=== PATIENT | male | born 1965 | race Caucasian/White ===

== ENCOUNTER → 2016-12-08 | Outpatient (CLI) | payer MEDICARE, MEDICAID ==
[~2016-12-08] MED LIST: APRESOLINE 50MG50 MG PO; ARANESP IJ; ASPIRIN 81MG TA81 MG PO; CELEXA20 MG PO; CENTRUM1 TAB PO; CEPHALEXIN500 MG PO; DOCUSATE SOD100 MG PO; FENTANYL 550 MCG/EAC TD; FERROUS SULFAT325 M2 PO; FLORINEF 0.1MG0.1 MG PO; FOLIC ACID1 MG PO; GAS-X80 MG PO; HYDROCODON APAP PO; HYDROCODONE-APA1 TA2 PO; ISOSORBIDE DINI10 MG PO; ISOSORBIDE MONO30 MG PO; KEFLEX 500MG.500 MG PO; LIDODERM 5% PA1 EACH TD; LISINOPRIL10 MG PO; LORTAB 5/500 501 TAB PO; MAG-OX 400MG T400 MG PO; METHOTREXATE 22.5 MG PO; METOCLOPRAMIDE10 M2 PO; METOPROLOL25 MG PO; MIRALAX17 GM/PACK PO; NEURONTIN100 MG PO; NOMEDS; Oxycodone5 MG PO; PERCOCET 5/3251 EACH PO; PLAVIX75 MG PO; POTASSIUM CHLO10 ME3 PO; POTASSIUM CHLO20 ME2 PO; PROTONIX 40MG T40 MG PO; RENAGEL800 MG PO; THIAMINE 100MG100 MG PO; TYLENOL 8 HOUR650 MG PO; TYLENOL325 MG PO; VENLAFAXINE37.5 MG PO; VITAMIN B12500 MCG PO; [UNRECOGNIZED DRUG - OTHER] IJ; [UNRECOGNIZED DRUG - OTHER] PO
== END ==
LOC: LAB 16:47
DX: L97.519 Non-pressure chronic ulcer of other part of right foot with unspecified severity (principal)

== ENCOUNTER → 2017-03-13 | Outpatient (CLI) | payer MEDICARE, MEDICAID ==
[2017-03-13 15:10] LABS: HEMOGLOBIN 13.1 g/dL (14.1-18.0); LYMPH # 1.7 K/mm3 (0.7-4.5); LYMPH % 15.4 % (10-50)
[2017-03-13 16:19] LABS: BUN 12 mg/dL (7-18)
[2017-03-13 17:13] LABS: GFR (ESTIMATED) 54 ML/MIN (>60)
== END ==
LOC: LAB 13:33
PROVIDERS: Internal Medicine Adolescent Medicine
DX: L03.115 Cellulitis of right lower limb (principal); Z51.81 Encounter for therapeutic drug level monitoring

== ENCOUNTER → 2017-03-20 | Outpatient (CLI) | payer MEDICARE, MEDICAID ==
[2017-03-20 14:01] LABS: HEMOGLOBIN 12.7 g/dL (14.1-18.0); LYMPH # 1.5 K/mm3 (0.7-4.5); LYMPH % 15.7 % (10-50)
[2017-03-20 17:37] LABS: BUN 9 mg/dL (7-18)
[2017-03-20 17:38] LABS: GFR (ESTIMATED) 64 ML/MIN (>60)
== END ==
LOC: LAB 13:17
PROVIDERS: Internal Medicine Adolescent Medicine
DX: L03.115 Cellulitis of right lower limb (principal); Z51.81 Encounter for therapeutic drug level monitoring

== ENCOUNTER 2017-05-05 08:29 | Day surgery (SDC) | payer MEDICARE ==
[~2017-05-05] VITALS: Ht 198.1 cm; Wt 123.8 kg
--- NOTE | 2017-05-05 12:06 | Anesthesia Record ---
Anesthesia Record Part I Total IV fluids: 600 EBL (ml): 20 Urine Output: 0 Units of blood given: 0 B/P: 109/73 % SaO2: 96 Pulse: 87 Resps: 10 Temp: 97.4 Patient is: Awake, Stable Stable to PACU at: 1158 at 1205
--- NOTE | 2017-05-05 12:06 | Anesthesia Record ---
Anesthesia Record Part II Discharge time: 1228 Destination: Same day surgery PACU nurse assessment review? Yes Patient is: Awake, Stable Anesthesia complications? No at 1209
--- NOTE | 2017-05-05 12:21 | Operative Note-Podiatry ---
Procedure/Operative Record Procedure DATE OF PROCEDURE 05/05/17 PREOPERATIVE DIAGNOSIS Right foot multiple digital wounds Right 4-5th toes osteomyelitis Right hammertoes 2-5 Right hallux valgus Right equinus Left foot wound POSTOPERATIVE DIAGNOSIS Same as Preop Dx PROCEDURE PERFORMED 1. Right transmetatarsal amputation 2. Right tendo Achilles lengthening SURGEON Aparna TORRES,Joy ANESTHESIA General 20 cc 0.5% marcaine plain EBL (ml) 30 OPERATIVE NOTE/DISCHARGE/PLAN Indication for procedure: Mr. Almonte is a 51 y/o M who was has multiple right foot ulcers between all the toes, as well as osteomyelitis of the 4-5th digits. X-rays and labs confirm OM. He has been on IV Abx via PICC. After a long discussion with the patient in regards to the conservative vs surgical treatment for the wounds, the patient has elected to proceed with surgery because they have failed conservative treatment and continue to have worsening symptoms affecting daily activities. The patient has been instructed on the planned procedure, all the risks vs benefits of the procedure to include bleeding, infection, nerve and blood vessel damage, need for further surgery, delay in healing of soft tissue or bone, failure of the bones to heel, prolonged pain and recovery, prolonged swelling, CRPS/RSD, dvt, and anesthetic complications. Recommend R TMA to address all deformities. I discussed the need for right 4-5th digital amputations. Given the multiple right foot wounds, severe interdigital maceration, digital contractures and subluxation, hallux malleus and bunion deformity, doing a transmetatarsal amputation would have a better surgical outcome. Could do isolated 4-5th toe amps, but would put more pressure on 1st met ulcer and likely would have further breakdown. As of now, PICC is in place, on Rocephin 1g IV q12h. I explained that he is at HIGH RISK FOR DIGITAL AND PARTIAL FOOT AMPUTATION. I once again discussed with him, infection and complications including: senior living IV abx, prolonged pain and swelling, recurrent infection, loss of limb and loss of life. No guarantees were given. All questions fully answered. The patient verbalized understanding and agreed to proceed with surgery. Consent was obtained. Patient was deemed an appropriate surgical candidate, informed consent was signed. Patient will to the operating theater placed on the table in supine position. General anesthesia was induced. The RIGHT LE prepped and draped in normal sterile fashion. Tourniquet utilized at 225 mmHg x 49 mins. 20 mL of half percent Marcaine plain were infiltrated in an ankle block fashion before and after the procedure. RIGHT Tendo Achilles Lengthening: Attention was directed to posterior leg. A percutaneus AMY was performed via 3 stab incisions. The foor was dorsiflexed and lengthening was noted. The wound was cleaned with saline and skin repaired with 3-0 Prolene. RIGHT foot Transmetatarsal Amputation: Attention was directed to the RIGHT foot where multiple interdigital wounds were noted. The 5th distal phalanx is exposed. Incision was mapped out around the toes, 15 blade was used to dissect down to the level of the bone. No purulence noted. No malodor. Attention was then directed into the wound. A burgess elevator was used to clear soft tissue from the bone. Power instrumentation was used to transect the 1-5th metatarsals. When performing the transmetatarsal amputation the 5th metatarsals was soft and crumbly. The parabola was maintained. Bone rongeur and rasp were used to smooth down edges. A piece of the 5th metatarsal was sent as a bone culture. At this point, 0.3 L of bacitracin irrigation was used in a pulse lavage to clean out the wound. After irrigation the wound was reexplored, no purulence and no tracking was noted. 2-0 Prolene was then used to reapproximate the skin. A flap was utilized. The wound was completely closed with suture. A 10 flat DEMARCUS drain was inserted laterally. Betadine soaked xerofoam , 4 x 4's was then applied. Dry sterile dressing was applied to right foot. Patient was awoken from anesthesia with vital signs stable and neurovascular status intact. Transferred to PACU for further monitoring before being transferred back to the floor. LEFT FOOT WOUND: New betadine dressing applied to left foot wound. No debridement performed. Specimen: RIGHT 5th metatarsal bone culture RIGHT 5th metatarsal proximal margin Plan: Maintain dressing clean dry and intact to the both feet. Elevated on a pillow Postoperative x-rays of right foot NWB to RIGHT foot in post op shoe, WBaT to left foot in post op shoe Continue IV antibiotics, Plavix and pain mgmt Follow up with pain mgmt on Monday Plan for daily dressing changes with Betadine soaked 4 x 4, dry 4 x 4, Kerlix to the left foot via HHC Maintain DEMARCUS drain to right foot Rx given for Kari Da Silva Follow up on Monday with me at 1234
--- NOTE | 2017-05-05 13:25 | RADIOLOGY REPORT PS360 ---
FOOT-RT-3 VIEWS HISTORY: S/P AMPUTATION TOES RIGHT FOOT AND EXTENSION ACHILLES TEND ORDERING PHYSICIAN: DAVID TORRES DPM PATIENT AGE: 51 years COMPARISON: 05/01/2017 FINDINGS: Status post amputation of the mid aspect of the first through fifth metatarsals. Bandage artifact. Drainage tube is present laterally. Soft tissue gas noted along the posterior aspect of the distal leg likely postsurgical. IMPRESSION Post surgical changes with amputation of the metatarsal region toes one through 5
[2017-05-05 18:22] VITALS: BP 109/71
[2017-05-08] MEDS ORDERED: HYDROCODONE BIT1 T45 PO (14:49)
== END 2017-05-05 14:15 | disposition home or self-care (01) ==
LOC: SDC 08:29
PROVIDERS: Podiatrist
PROC: 0Y6M0ZB Detachment at Right Foot, Partial 2nd Ray, Open Approach (ICD-10-PCS; 2017-05-05)
PROC: 0Y6M0ZC Detachment at Right Foot, Partial 3rd Ray, Open Approach (ICD-10-PCS; 2017-05-05)
PROC: 0Y6M0ZD Detachment at Right Foot, Partial 4th Ray, Open Approach (ICD-10-PCS; 2017-05-05)
PROC: 0Y6M0ZF Detachment at Right Foot, Partial 5th Ray, Open Approach (ICD-10-PCS; 2017-05-05)
PROC: 0L8N3ZZ Division of Right Lower Leg Tendon, Percutaneous Approach (ICD-10-PCS; 2017-05-05)
PROC: 0Y6M0Z9 Detachment at Right Foot, Partial 1st Ray, Open Approach (ICD-10-PCS; principal; 2017-05-05 10:00)
DX: M86.171 Other acute osteomyelitis, right ankle and foot (principal); L89.893 Pressure ulcer of other site, stage 3; M20.11 Hallux valgus (acquired), right foot; M20.41 Other hammer toe(s) (acquired), right foot; M67.01 Short Achilles tendon (acquired), right ankle; L97.512 Non-pressure chronic ulcer of other part of right foot with fat layer exposed; I10 Essential (primary) hypertension; I25.2 Old myocardial infarction; E66.9 Obesity, unspecified; Z68.31 Body mass index [BMI] 31.0-31.9, adult; F17.210 Nicotine dependence, cigarettes, uncomplicated; J44.9 Chronic obstructive pulmonary disease, unspecified; Z79.02 Long term (current) use of antithrombotics/antiplatelets; Z79.82 Long term (current) use of aspirin; Z79.891 Long term (current) use of opiate analgesic; Z79.899 Other long term (current) drug therapy
CPT/HCPCS: J2405